=== PATIENT | female | born 1990 | race Caucasian/White ===

== ENCOUNTER 2023-02-28 14:16 | Emergency (ER) | payer OTHER, SELFPAY ==
[2023-02-28 14:21] VITALS: BP 126/84; PULSE 90; RESP 18; TEMP 36.2; O2SAT 96; BMI 35.8
--- NOTE | 2023-02-28 15:45 | ED.GENADULT ---
HPI - General Adult General Time Seen by Provider: 16:01 Date Seen: 02/28/23 Chief complaint: Nausea/Vomiting Stated complaint: Nausea, sick for 3 wks Time Seen by Provider: 02/28/23 15:19 Source: patient and RN notes reviewed Mode of arrival: ambulatory Limitations: no limitations History of Present Illness HPI narrative: This 32yo female is coming into to the ED with about 3 weeks of daily nausea/vomiting, diarrhea. Did see some blood earlier today in the vomit. Is vomiting about 2 times daily, 3-4 times with diarrhea. Was seen in November for one week of similar symptoms. She wonders if this could be ulcers as she has been very stressed. Can keep things down (fluid/food) for about 2 hours then will vomit. No fevers or chills but does not some abdominal discomfort. No travel, no ill contacts, no recent antibiotics, has never had C difficile before that she is aware. She takes Cymbalta for her depression and anxiety, does admit that she suffers from this. Will use ibuprofen for headaches but otherwise no other medicines. She does not drink alcohol. She admits to vaping couple times a day, states she believes that is primarily CBD which she uses for her anxiety and depression. She states she has not been diagnosed with cyclical vomiting before. She did try some Pepto-Bismol earlier today and subsequently threw it up. She has a Mirena IUD, states there is no chance for . Related Data Previous Rx's Medication Instructions Recorded ondansetron 4 mg disintegrating 4 mg PO Q6H PRN nausea and 02/28/23 tablet vomiting #20 tabs Allergies Allergy/AdvReac Type Severity Reaction Status Date / Time acetaminophen [From Tylenol] Allergy Verified 02/28/23 14:24 metoclopramide [From Reglan] Allergy Verified 02/28/23 14:23 Review of Systems Status of ROS: Reports: 6 or more systems reviewed and unremarkable except as noted in History and below PFSH PFSH Social History Smoking Status: Current every day smoker What tobacco products do you use: cigarettes Do you use any of these nicotine containing products: Vaping Products Second hand tobacco smoke exposure: No How often do you have a drink containing alcohol: never How often do you have six or more drinks on one occasion: Never AUDIT-C Alcohol total score: 0 Non-prescribed substance use: marijuana (any form) Non-prescribed substance use details: smokes marijuana daily service: No Exam Const: Vital Signs, click to edit/add: Vital Signs - 24 hr 02/28/23 14:21 02/28/23 16:08 Temperature 97.2 F L Pulse Rate [Right Pulse Oximeter] 90 Respiratory Rate 18 Blood Pressure [Ri ght Upper Arm] 126/84 Pulse Oximetry 96 97 Oxygen Delivery Me thod Room Air 32-year-old female is alert, interactive, no apparent distress. She does flutter her upper eyelids quite a bit when I am talking to her but overall is pleasant, good eye contact. Sclera clear, conjugate gaze, no nystagmus noted. Symmetrical facial function, tongue is pierced, some nicotine staining of the tongue but otherwise mucosal looks B glistening, dentition in good repair. Neck supple, no cervical adenopathy or thyromegaly masses or nodules. She is able to sit up easily, lungs are clear, good air entry, no wheezing or crackles, no tachypnea, no accessory muscle use. CV regular rate and rhythm, no murmur, normal S1 and S2, no S3 or S4. Abdomen is soft, bowel sounds are present, do not sound very active. She has no organomegaly, she is completely nontender and without any rebound or guarding at this time. No lower extremity edema, skin without any rashes. Documenting provider has reviewed patient's vital signs: yes Course Course ED Course: Given her current clinical exam, do not feel she needs any advanced imaging at this time. Will start with flat and upright abdominal imaging to look at the character of her bowels. Otherwise, will get full complement of labs. Will initiate a L of normal saline and 4 mg IV Zofran. Do suspect that this could be potentially a cyclical vomiting picture. It is possible could be other etiology. As far as ulcer disease, have discussed with her that that certainly could be a consideration but we typically do not see diarrhea with that. That is not something I will likely be able to completely rule out is that would require an EGD and is certainly a consideration in workup of the symptoms albeit outpatient. We will see where labs lead us an as well as the abdominal x-ray, see how she responds to IV fluids and Zofran. Reevaluation(s) Time of Reevaluation #1: 18:17 Reevaluation #1: Patient is feeling better with fluids and Zofran on board. We discussed her labs, all normal with the exception of the potassium being 0.1 off of normal, certainly explained by her GI losses. We are waiting radiology over read her abdominal imaging. I do think that there is a distinct possibility that the vaping she is doing might be a causative etiology. We did discuss that if she is concerned, it would not be inappropriate for her to talk to her primary care provider about doing an outpatient EGD. Hopefully her imaging will be read soon. Vital Signs Vital signs: Initial Vital Signs Temperature 97.2 F L 02/28/23 14:21 Temperature Source Temporal Artery Scan 02/28/23 14:21 Pulse Rate 90 02/28/23 14:21 Respiratory Rate 18 02/28/23 14:21 Blood Pressure 126/84 02/28/23 14:21 Blood Pressure Mean 98 02/28/23 14:21 Blood Pressure Position Sitting 02/28/23 14:21 Pulse Oximetry 96 02/28/23 14:21 Oxygen Delivery Method Room Air 02/28/23 14:21 Vital Signs Temperature 97.2 F L 02/28/23 14:21 Pulse Rate 90 02/28/23 14:21 Respiratory Rate 18 02/28/23 14:21 Blood Pressure 126/84 02/28/23 14:21 Pulse Oximetry 96 02/28/23 14:21 Oxygen Delivery Method Room Air 02/28/23 14:21 Temperature 97.2 F L 02/28/23 14:21 Pulse Rate 90 02/28/23 14:21 Respiratory Rate 18 02/28/23 14:21 Blood Pressure 126/84 02/28/23 14:21 Pulse Oximetry 97 02/28/23 16:08 Oxygen Delivery Method Room Air 02/28/23 14:21 Medications Administered Medications: Discontinued Medications Generic Name Dose Route Start Last Admin Trade Name Freq PRN Reason Stop Dose Admin Sodium Chloride 1,000 mls @ 1,000 mls/hr 02/28/23 16:09 02/28/23 17:32 0.9 % Sodium Chloride 1000 Ml IV 02/28/23 17:08 Infused .Q1H [facility]ADOR Infusion Ondansetron HCl 4 mg 02/28/23 16:08 02/28/23 16:22 Ondansetron 2 Mg/Ml Inj IVP 02/28/23 16:09 4 mg ONCE ONE Administration Medical Decision Making Lab Data Lab results reviewed: Yes I reviewed the patient's lab results Labs: Lab Results 02/28/23 02/28/23 Range/Units 16:21 17:32 WBC 7.99 (4.50-11.00) K/uL RBC 4.86 (4.00-5.20) m/uL Hgb 15.1 (12.0-16.0) gm/dL Hct 44.6 (33.0-51.0) % MCV 92 (80-100) fL MCH 31 (26-34) pg MCHC 34 (32-36) gm/dL RDW Coeff of Benjamín 12.8 (11.5-15.5) % Plt Count 313 (140-440) K/uL Neut % (Auto) 63.2 (42.0-72.0) % Lymph % (Auto) 25.9 (20-44) % [place] % (Auto) 7.1 (0.0-11.0) % Eos % (Auto) 3.4 (0.0-7.0) % Baso % (Auto) 0.3 (0.0-3.0) % Neut # (Auto) 5.05 (1.7-7.0) K/uL Lymph # (Auto) 2.07 (0.90-2.90) K/uL [place] # (Auto) 0.60 (0.00-0.90) K/UL Eos # (Auto) 0.27 (0.00-0.50) K/uL Baso # (Auto) 0.02 (0.00-0.30) K/uL Abs Immat Gran (auto) 0.01 (0.00-0.30) K/uL Imm/Tot Granulo (auto) 0.1 % Sodium 140 (135-149) mmol/L Potassium 3.5 L (3.6-5.1) mmol/L Chloride 107 (96-114) mmol/L Carbon Dioxide 22 (20-32) mmol/L Anion Gap 11 (7-15) mEq/L BUN 7 (5-24) mg/dL Creatinine 0.9 (0.5-1.5) mg/dL Estimated Creat Clear 79.25 Estimated GFR 86 ml/min Glucose 90 (60-115) mg/dL Lactate 0.8 (0.5-1.9) mmol/L Calcium 9.2 (8.4-10.6) mg/dL Total Bilirubin 0.5 (0.1-1.5) mg/dL AST 29 (12-35) U/L ALT 22 (4-35) U/L Alkaline Phosphatase 69 (40-150) U/L C-Reactive Protein < 0.5 L (0.5-1.0) mg/dL Total Protein 7.3 (6.0-8.3) g/dL Albumin 4.3 (3.3-5.0) g/dL Urine Color Yellow (Yellow) Urine Appearance Cloudy A (Clear) Urine pH 6.0 (5.0-8.5) Ur Specific [place] >= 1.030 (1.000-1.030) Urine Protein 2+ A (Negative) Urine Glucose (UA) Negative (Negative) Urine Ketones 1+ A (Negative) Urine Blood Trace-lysed A (Negative) Urine Nitrite Negative (Negative) Urine Bilirubin 1+ A (Negative) Urine Urobilinogen 0.2 (0.2-1.0) Ur Leukocyte Esterase Negative (Negative) Urine RBC 0-2 (0-2) Urine WBC 5-10 A (0-5) Ur Squamous Epith Cells Moderate A (None-Few) Urine Bacteria Moderate A (None) Imaging Data Abdominal x-ray: Attestation: I have reviewed the pertinent imaging results. My impression: No acute pathology on my preliminary review, certainly no obstructive changes. Radiologist's impression: Patient: [facility] Facility:?[facility] Patient ID:?[id number] Site Patient ID:?[id number]. Site :?[id number] Study:?XRay Abdomen/Pelvis 3 IMAGES-02/28/2023 4:49:56 PM Ordering Physician:Wendy Jacobson Final Report: Indication: Nausea, vomiting, diarrhea. Technique: Abdomen 3 views. Permanently recorded images are archived. Comparison: None. Findings: Bowel: Nonobstructive bowel gas pattern. Normal colonic stool burden. Other: No sign of free air. No sign of soft tissue mass. IUD projects over the pelvis. The lung bases are clear. The osseous structures are unremarkable for age. Impression: No evidence of an acute intra-abdominal process. Dictated by Yunior Russell MD @ 02/28/2023 6:20:48 PM (Electronic Signature) Discharge Plan Discharge Clinical Impression: Nausea, vomiting and diarrhea Patient Disposition: Home, Self-Care Condition: Stable Instructions: Acute Nausea and Vomiting (ED), Nutrition Tips for Relief of Diarrhea (ED), Cyclic Vomiting Syndrome (ED) Additional Instructions: Need to follow up in clinic with your primary provider for re-evaluation, hopefully with in this next week. Would recommend discussing the possibility of an EGD with your concerns. Do recommend cessation vaping the CBD. Different compounds may not control for the THC in the CBD very well. There is a well-known entity of cyclical vomiting with THC users. No further workup is needed in the ER at this time but should you develop fevers, severe increase in pain, feel you are worsening, do recommend re-evaluation in the ED. other possible testing that may need to be considered with ongoing issues could include advanced imaging such as a CT of your abdomen and pelvis, stool studies to rule out infectious etiology. Your examination here tonight was quite benign, C reactive protein in CBC were all very normal, was not felt that anything further was needed based on your presentation here tonight. Use the Zofran to help alleviate nausea so that you can have improved oral intake. Activity Level: Activity as Tolerated Prescriptions: New ondansetron 4 mg tablet,disintegrating 4 mg PO Q6H PRN (Reason: nausea and vomiting) Qty: 20 0RF Follow Up/Referrals: Provider,Not a Local [Primary Care Provider] - Stand Alone Forms: [employer] Info Instructions
[2023-02-28 16:08] VITALS: O2SAT 97
--- NOTE | 2023-02-28 16:08 | CRLHL7_ITS ---
For Patients: As a result of the Century Cures Act, medical imaging exams and procedure reports are released immediately into your electronic medical record. You may view this report before your referring provider. If you have questions, please contact your health care provider. Indication: Nausea, vomiting, diarrhea. Technique: Abdomen 3 views. Permanently recorded images are archived. Comparison: None. Findings: Bowel: Nonobstructive bowel gas pattern. Normal colonic stool burden. Other: No sign of free air. No sign of soft tissue mass. IUD projects over the pelvis. The lung bases are clear. The osseous structures are unremarkable for age. Impression: No evidence of an acute intra-abdominal process. Dictated by Yunior Russell MD @ 02/28/2023 6:20:48 PM (Electronically Signed)
[2023-02-28] MEDS: 0.9 % SODIUM CHLORIDE 1000 ml 1,000 ML IV (16:22)
[2023-02-28] MEDS: ONDANSETRON 2 MG/ML inj 4 MG IVP (16:22)
[2023-02-28 16:30] LABS: Lactate* 0.8 mmol/L (0.5-1.9)
[2023-02-28 16:31] LABS: Basophils Absolute Auto 0.02 K/uL (0.00-0.30); Basophils Percent Auto 0.3 % (0.0-3.0); Eosinophils Absolute Auto 0.27 K/uL (0.00-0.50); Eosinophils Percent Auto 3.4 % (0.0-7.0); Hematocrit 44.6 % (33.0-51.0); Hemoglobin* 15.1 gm/dL (12.0-16.0); Immature Granulocytes Abs Auto 0.01 K/uL (0.00-0.30); Immature Granulocytes Pct Auto 0.1 %; Lymphocytes Absolute Auto 2.07 K/uL (0.90-2.90); Lymphocytes Percent Auto 25.9 % (20-44); Mean Corpuscular HGB Conc 34 gm/dL (32-36); Mean Corpuscular Hemoglobin 31 pg (26-34); Mean Corpuscular Volume 92 fL (80-100); Monocytes Percent Auto 7.1 % (0.0-11.0); Neutrophils Absolute Auto 5.05 K/uL (1.7-7.0); Neutrophils Percent Auto 63.2 % (42.0-72.0); Platelet Count* 313 K/uL (140-440); RDW Coefficient of Variation % 12.8 % (11.5-15.5); Red Blood Count 4.86 m/uL (4.00-5.20); White Blood Count* 7.99 K/uL (4.50-11.00)
[2023-02-28 16:53] LABS: C Reactive Protein* < 0.5 mg/dL (0.5-1.0)
[2023-02-28 16:58] LABS: Slide Review Reflex No
[2023-02-28 17:34] LABS: Albumin* 4.3 g/dL (3.3-5.0); Chloride* 107 mmol/L (96-114)
[2023-02-28 17:35] LABS: Potassium* 3.5 mmol/L (3.6-5.1); Sodium* 140 mmol/L (135-149)
[2023-02-28 17:37] LABS: Anion Gap 11 mEq/L (7-15); Bilirubin Total* 0.5 mg/dL (0.1-1.5); Carbon Dioxide* 22 mmol/L (20-32); Creatinine* 0.9 mg/dL (0.5-1.5); Est. Creatinine Clearance* 79.25; Estimated Glomerular Filt Rate 86 ml/min; Total Protein* 7.3 g/dL (6.0-8.3)
[2023-02-28 17:38] LABS: Alanine Aminotransferase* 22 U/L (4-35); Alkaline Phosphatase* 69 U/L (40-150); Aspartate Amino Transferase* 29 U/L (12-35); Blood Urea Nitrogen* 7 mg/dL (5-24); Calcium* 9.2 mg/dL (8.4-10.6); Glucose* 90 mg/dL (60-115)
[2023-02-28 17:46] LABS: Appearance Urine Cloudy (Clear); Bilirubin Urine 1+ (Negative); Blood Urine Trace-lysed (Negative); Color Urine Yellow (Yellow); Glucose Urine Negative (Negative); Ketones Urine 1+ (Negative); Leukocyte Esterase Urine Negative (Negative); Nitrite Urine Negative (Negative); Protein Urine 2+ (Negative); Specific Gravity Urine >= 1.030 (1.000-1.030); Urobilinogen Urine 0.2 (0.2-1.0)
[2023-02-28 18:00] LABS: Bacteria Urine Moderate; RBC Urine 0-2 (0-2); Squamous Epithelial Cell Urine Moderate (None-Few)
== END 2023-02-28 18:43 | disposition home or self-care (01) ==
PROVIDERS: Emergency Provider Family Medicine
DX: R11.2 Nausea with vomiting, unspecified (principal); R19.7 Diarrhea, unspecified
CPT/HCPCS: 36415; 74019; 80053; 81001; 83605; 85025; 86140; 87086; 94761; 96361; 96374; 99284; J2405; J7030

== ENCOUNTER 2024-05-07 15:58 | Emergency (ER) | payer MEDICAID, SELFPAY ==
[2024-05-07 16:02] VITALS: BP 144/88; PULSE 91; RESP 18; TEMP 36; O2SAT 96; BMI 37.1
--- NOTE | 2024-05-07 16:28 | ED_ITS ---
HPI - General Adult General Time Seen by Provider: 16:30 Date Seen: 05/07/24 Chief complaint: Unspecified Complaint, Adult Stated complaint: Numbness in left arm going to lips Time Seen by Provider: 05/07/24 16:25 Source: patient Mode of arrival: ambulatory Limitations: no limitations History of Present Illness HPI narrative: 33-year-old female who comes in with left arm numbness and facial numbness started about 2:00 p.m. patient says she has some numbness by the left side of her face and left arm, also notes some heaviness of the left leg. Also notes some tingling around the left side of her mouth that started about 45 minutes ago. No head injury, no nausea vomiting, no chest pain. Related Data Home Medications ?Medication ?Instructions ?Recorded ?Confirmed No Known Home Medications 05/07/24 05/07/24 Allergies Allergy/AdvReac Type Severity Reaction Status Date / Time acetaminophen (From Tylenol) Allergy Verified 05/07/24 17:07 metoclopramide (From Reglan) Allergy Verified 05/07/24 17:07 [facility] Social History Smoking Status: Current every day smoker What tobacco products do you use: cigarettes Do you use any of these nicotine containing products: Vaping Products Second hand tobacco smoke exposure: No How often do you have a drink containing alcohol: never How often do you have six or more drinks on one occasion: Never AUDIT-C Alcohol total score: 0 Non-prescribed substance use: marijuana (any form) Non-prescribed substance use details: smokes marijuana daily service: No Exam Narrative: Exam Narrative: General: Well-developed and well-nourished, no acute distress Head: Atraumatic and normocephalic Eyes: Pupils are equal reactive, extraocular motions intact, conjunctiva clear ENT: External nose and ears are normal, posterior pharynx without erythema or exudate Neck: No midline cervical tenderness, full spontaneous range of motion the neck, trachea midline, no adenopathy Heart: Regular rate and rhythm no murmurs or thrills Lungs: Clear to auscultation bilaterally without wheezes or crackles Abdomen: Soft, nontender, nondistended with active bowel sounds Musculoskeletal: No tenderness, deformity, or edema Neurologic: Awake, alert, and oriented x3. Slight hyperesthesia of the left arm in the C6. Mild ataxia of the left arm and left leg, for drift of the left leg. Psych: Mood and affect are appropriate Skin: No rashes Const: Vital Signs, click to edit/add: Vital Signs - 24 hr 05/07/24 16:02 Temperature 96.8 F L Pulse Rate [Pulse Oximeter] 91 Respiratory Rate 18 Blood Pressure [Ri ght Upper Arm] 144/88 H Pulse Oximetry 96 Oxygen Delivery Me thod Room Air Course Course ED Course: Reviewed most recent emergency department visit from February 2023 when patient was seen with nausea, vomiting, diarrhea diagnosed with gastrointestinal illness, symptomatic treatment recommended. Patient presents today with left arm numbness started about 2:00 p.m. and left perioral numbness starting about 3:45 p.m. She says her left leg feels a little heavy. She reports symptoms have been persistent since onset. On exam here, facial sensation intact no facial asymmetry. On exam she has mild left arm ataxia with [id number] testing and rapid alternating movements, left leg ataxia and slight drift. 1640- Care discussed with Dr. Slade, stroke neurology. Reevaluation(s) Time of Reevaluation #1: 17:58 Reevaluation #1: CTA independently interpreted by me negative for acute findings, reviewed the radiology report. Reviewed MRI report which is negative for acute findings. Care was discussed with Dr. Slade who feels that patient is stable for discharge as long as MRI is normal. Patient recheck, discussed findings, she is agreeable to discharge. EKG independently interpreted by me performed at 5:40 p.m. demonstrates sinus rhythm rate 73, no acute ST elevations or depressions, normal intervals, normal axis, QTC 431, MO 144. No prior for comparison. Labs independently interpreted by me with normal CBC, a normal INR, normal basic panel. Patient is stable for discharge with outpatient follow-up. Vital Signs Vital signs: Initial Vital Signs Temperature 96.8 F L 05/07/24 16:02 Temperature Source Temporal Artery Scan 05/07/24 16:02 Pulse Rate 91 05/07/24 16:02 Respiratory Rate 18 05/07/24 16:02 Blood Pressure 144/88 H 05/07/24 16:02 Blood Pressure Mean 106 H 05/07/24 16:02 Blood Pressure Position Sitting 05/07/24 16:02 Pulse Oximetry 96 05/07/24 16:02 Oxygen Delivery Method Room Air 05/07/24 16:02 Vital Signs Temperature 96.8 F L 05/07/24 16:02 Pulse Rate 91 05/07/24 16:02 Respiratory Rate 18 05/07/24 16:02 Blood Pressure 144/88 H 05/07/24 16:02 Pulse Oximetry 96 05/07/24 16:02 Oxygen Delivery Method Room Air 05/07/24 16:02 Temperature 96.8 F L 05/07/24 16:02 Pulse Rate 91 05/07/24 16:02 Respiratory Rate 18 05/07/24 16:02 Blood Pressure 144/88 H 05/07/24 16:02 Pulse Oximetry 96 05/07/24 16:02 Oxygen Delivery Method Room Air 05/07/24 16:02 Medical Decision Making Lab Data Labs: Lab Results 05/07/24 Range/Units 16:44 WBC 8.81 (4.50-11.00) K/uL RBC 4.65 (4.00-5.20) m/uL Hgb 14.4 (12.0-16.0) gm/dL Hct 42.6 (33.0-51.0) % MCV 92 (80-100) fL MCH 31 (26-34) pg MCHC 34 (32-36) gm/dL RDW Coeff of Benjamín 12.9 (11.5-15.5) % Plt Count 283 (140-440) K/uL Neut % (Auto) 74.7 H (42.0-72.0) % Lymph % (Auto) 16.7 L (20-44) % [place] % (Auto) 5.4 (0.0-11.0) % Eos % (Auto) 2.8 (0.0-7.0) % Baso % (Auto) 0.3 (0.0-3.0) % Neut # (Auto) 6.60 (1.7-7.0) K/uL Lymph # (Auto) 1.50 (0.90-2.90) K/uL [place] # (Auto) 0.50 (0.00-0.90) K/UL Eos # (Auto) 0.25 (0.00-0.50) K/uL Baso # (Auto) 0.03 (0.00-0.30) K/uL Abs Immat Gran (auto) 0.01 (0.00-0.30) K/uL Imm/Tot Granulo (auto) 0.1 % INR 0.96 (0.91-1.10) APTT 32 (23-33) Seconds Sodium 141 (135-149) mmol/L Potassium 3.9 (3.6-5.1) mmol/L Chloride 107 (96-114) mmol/L Carbon Dioxide 26 (20-32) mmol/L Anion Gap 8 (7-15) mEq/L BUN 7 (5-24) mg/dL Creatinine 0.9 (0.5-1.5) mg/dL Estimated Creat Clear 81.67 Estimated GFR 86 ml/min Glucose 101 (60-115) mg/dL Calcium 8.9 (8.4-10.6) mg/dL Discharge Plan Discharge Clinical Impression: Paresthesia Patient Disposition: Home, Self-Care Condition: Stable Instructions: Paresthesia (ED) Additional Instructions: Follow-up with your primary care doctor in 1 week if symptoms persist Activity Level: Activity as Tolerated Discharge Diet: Regular Prescriptions: No Action No Known Home Medications Follow Up/Referrals: Provider,Not a Local [Primary Care Provider] - Stand Alone Forms: [employer] Info Instructions
--- NOTE | 2024-05-07 16:39 | CRLHL7_ITS ---
For Patients: As a result of the Century Cures Act, medical imaging exams and procedure reports are released immediately into your electronic medical record. You may view this report before your referring provider. If you have questions, please contact your health care provider. DATE: 05/07/2024 CLINICAL HISTORY: Patient with focal neurological deficits. TECHNIQUE: Standard helical CT image acquisition of the neck up to the skull base after bolus intravenous contrast enhancement. 2D and 3D MIP images for post-processing were performed and interpreted on an independent workstation and 3D images were permanently archived. COMPARISON: CT same day. FINDINGS: The origins of the great vessels from the aortic arch are patent. The origin of the right vertebral artery is patent. The origin of the left vertebral artery is patent. The common carotid arteries are patent. There is no stenosis at the origin of the right internal carotid artery. There is no stenosis at the origin of the left internal carotid artery. The rest of the cervical segments of the internal carotid arteries are patent up to the skull base. The right vertebral artery is dominant. The cervical segments of the vertebral arteries are patent up to the skull base. The visualized lung apices are unremarkable. The thyroid gland is unremarkable. The soft tissues of the neck are unremarkable. There are degenerative changes in the cervical spine. IMPRESSION: Patent cervical vasculature. Please note that all CT scans at this facility use dose modulation, iterative reconstruction, and/or weight-based dosing when appropriate to reduce radiation dose to as low as reasonably achievable. Dictated by Courtney Vences MD @ 05/08/2024 10:27:02 AM (Electronically Signed)
--- NOTE | 2024-05-07 16:39 | CRLHL7_ITS ---
For Patients: As a result of the Century Cures Act, medical imaging exams and procedure reports are released immediately into your electronic medical record. You may view this report before your referring provider. If you have questions, please contact your health care provider. DATE: 05/07/2024 CLINICAL HISTORY: Patient with focal neurological deficits. TECHNIQUE: Standard helical CT image acquisition through the intracranial circulation following intravenous administration of contrast material with bolus tracking. 2D and 3D MIP images for post-processing were performed and interpreted on an independent workstation and 3D images were permanently archived. COMPARISON: CT same day. FINDINGS: There is no cerebral aneurysm or large vessel occlusion. The right internal carotid artery is normal. The right middle cerebral artery and its branches are normal. The right anterior cerebral artery and its branches are normal. The left internal carotid artery is normal. The left middle cerebral artery and its branches are normal. The left anterior cerebral artery and its branches are normal. The anterior communicating artery is well visualized and appears normal. The right vertebral artery and PICA are normal. The left vertebral artery and PICA are normal. The right vertebral artery is dominant. The basilar artery is patent and appears normal. The right posterior cerebral artery is normal. The left posterior cerebral artery is normal. The visualized venous structures are patent. IMPRESSION: Patent proximal intracranial vasculature without intracranial aneurysms. Please note that all CT scans at this facility use dose modulation, iterative reconstruction, and/or weight-based dosing when appropriate to reduce radiation dose to as low as reasonably achievable. Dictated by Courtney Vences MD @ 05/08/2024 10:28:50 AM (Electronically Signed)
--- NOTE | 2024-05-07 16:39 | CRLHL7_ITS ---
For Patients: As a result of the Century Cures Act, medical imaging exams and procedure reports are released immediately into your electronic medical record. You may view this report before your referring provider. If you have questions, please contact your health care provider. INDICATION: Left arm numbness, left arm and leg ataxia . TECHNIQUE: CT head without contrast. COMPARISON: None. FINDINGS: CSF spaces: Within normal limits for age. Brain parenchyma and extra-axial spaces: The rivers-white differentiation is normal. No sign of mass, hemorrhage, or midline shift. No extra-axial fluid collection. Mucous retention cyst in the right maxillary sinus. Rest of paranasal sinuses and mastoid air cells are well pneumatized. Bilateral orbits show no acute abnormality. The visualized orbits are grossly unremarkable. No skull fractures. IMPRESSION: No acute intracranial abnormality. Please note that all CT scans at this facility use dose modulation, iterative reconstruction, and/or weight-based dosing when appropriate to reduce radiation dose to as low as reasonably achievable. Dictated by Beto Beyer MD @ 05/07/2024 5:22:07 PM (Electronically Signed)
--- NOTE | 2024-05-07 16:56 | CRLHL7_ITS ---
For Patients: As a result of the Century Cures Act, medical imaging exams and procedure reports are released immediately into your electronic medical record. You may view this report before your referring provider. If you have questions, please contact your health care provider. INDICATION: Left arm numbness. Left arm/leg ataxia. TECHNIQUE: Brain MRI without contrast. COMPARISON: Head CT from 05/07/2024. FINDINGS: No evidence of acute ischemia. No evidence of acute or chronic intracranial blood products. No pathologic intracranial signal abnormality. No mass effect or herniation. No hydrocephalus or extra-axial collections. The pituitary gland, parasellar structures and optic chiasm are normal. Posterior fossa is normal. All the major intracranial vascular structures demonstrate normal flow-related signal. The orbital contents are normal. No calvarial or skull base marrow replacing process. Right maxillary sinus retention cyst. Mild paranasal sinus mucosal thickening. No extracranial soft tissue findings. IMPRESSION: 1. No significant intracranial abnormality. Dictated by Gabriel Nunez MD @ 05/07/2024 5:30:27 PM (Electronically Signed)
[2024-05-07 17:04] LABS: Basophils Absolute Auto 0.03 K/uL (0.00-0.30); Basophils Percent Auto 0.3 % (0.0-3.0); Eosinophils Absolute Auto 0.25 K/uL (0.00-0.50); Eosinophils Percent Auto 2.8 % (0.0-7.0); Hematocrit 42.6 % (33.0-51.0); Hemoglobin* 14.4 gm/dL (12.0-16.0); Immature Granulocytes Abs Auto 0.01 K/uL (0.00-0.30); Immature Granulocytes Pct Auto 0.1 %; Lymphocytes Percent Auto 16.7 % (20-44); Mean Corpuscular HGB Conc 34 gm/dL (32-36); Mean Corpuscular Hemoglobin 31 pg (26-34); Mean Corpuscular Volume 92 fL (80-100); Monocytes Percent Auto 5.4 % (0.0-11.0); Neutrophils Percent Auto 74.7 % (42.0-72.0); Platelet Count* 283 K/uL (140-440); RDW Coefficient of Variation % 12.9 % (11.5-15.5); Red Blood Count 4.65 m/uL (4.00-5.20); White Blood Count* 8.81 K/uL (4.50-11.00)
[2024-05-07 17:05] LABS: Slide Review Reflex No
[2024-05-07 17:20] LABS: Chloride* 107 mmol/L (96-114); Potassium* 3.9 mmol/L (3.6-5.1); Sodium* 141 mmol/L (135-149)
[2024-05-07 17:21] LABS: INR 0.96 (0.91-1.10); Prothrombin Time 13.4 Seconds
[2024-05-07 17:22] LABS: Partial Thromboplastin Time* 32 Seconds (23-33)
[2024-05-07 17:23] LABS: Anion Gap 8 mEq/L (7-15); Blood Urea Nitrogen* 7 mg/dL (5-24); Calcium* 8.9 mg/dL (8.4-10.6); Carbon Dioxide* 26 mmol/L (20-32); Creatinine* 0.9 mg/dL (0.5-1.5); Est. Creatinine Clearance* 81.67; Estimated Glomerular Filt Rate 86 ml/min; Glucose* 101 mg/dL (60-115)
[2024-05-07 17:30] VITALS: PULSE 91; RESP 18; O2SAT 98
[2024-05-07 18:01] VITALS: BP 123/87; PULSE 81; RESP 18; O2SAT 95
[2024-05-07 18:02] VITALS: PULSE 78; O2SAT 96
== END 2024-05-07 18:24 | disposition home or self-care (01) ==
PROVIDERS: Emergency Provider Family Medicine
DX: R20.2 Paresthesia of skin (principal)
CPT/HCPCS: 36415; 70450; 70496; 70498; 70551; 80048; 85025; 85610; 85730; 93005; 94761; 99284; 99285; Q9967